=== PATIENT | female | born 1990 | race African-American/Black ===

== ENCOUNTER 2017-07-08 08:49 | Emergency (ER) | payer MEDICAID ==
[~2017-07-08] VITALS: Ht 149.9 cm; Wt 59.8 kg
[~2017-07-08 08:49] MED LIST: HYDR-3992; HYDR25SU7
[2017-07-08 09:25] VITALS: BP 109/76
== END 2017-07-08 11:56 | disposition left against medical advice (07) ==
LOC: ER 09:27
DX: M79.606 Pain in leg, unspecified (principal); Z53.21 Procedure and treatment not carried out due to patient leaving prior to being seen by health care provider

== ENCOUNTER 2020-02-23 23:52 | Observation (INO) | payer OTHER ==
[~2020-02-23] VITALS: Ht 149.9 cm; Wt 84.8 kg
[~2020-02-23 23:52] MED LIST changes: +IBUP-2028 PO
[2020-02-24 01:17] LABS: BASOPHILS % 0.4 % (0.0-2.0); CLARITY URINE TURBID (CLEAR); COLOR URINE YELLOW (YELLOW); EOSINOPHILS % 2.4 % (0.0-5.0); HEMATOCRIT. 29.1 % (36.0-48.0); HEMOGLOBIN. 10.1 g/dL (12.0-16.0); KETONES URINE TRACE (NEGATIVE); LEUKOCYTE ESTERASE URINE 2+ (NEGATIVE); LYMPHOCYTES % 22.8 % (20.0-50.0); MEAN CORPUSCULAR HEMOGLOBIN 30.8 pg (28.0-32.0); MEAN CORPUSCULAR VOLUME 88.9 fL (81.0-99.0); MEAN PLATELET VOLUME 8.4 fl (7.4-10.4); MONOCYTES % 12.1 % (2.0-8.0); NEUTROPHILS % 62.3 % (40.0-76.0); NITRITE URINE NEGATIVE (NEGATIVE); OCCULT BLOOD URINE NEGATIVE (NEGATIVE); PH URINE 6.5 (4.5-8.0); PLATELET 273 x1000/uL (130-400); PROTEIN URINE 1+ (NEGATIVE); RED BLOOD CELL COUNT 3.28 mill/uL (4.2-5.4); SPECIFIC GRAVITY URINE 1.027 (1.005-1.030)
[2020-02-24] MEDS ORDERED: ACETAMINOPHEN 325MG TABLET PO SCH (01:30)
[2020-02-24] MEDS: CEFTRIAXONE SODIUM 1 G/VIAL IM SCH ×2 (02:04→02:16)
== END 2020-02-24 02:37 | disposition home or self-care (01) ==
LOC: 8 EST LDRP 23:52
PROVIDERS: ADMIT Obstetrics & Gynecology; ATTEND Obstetrics & Gynecology
DX: O26.893 Other specified pregnancy related conditions, third trimester (principal); M54.5 Low back pain; Z3A.29 29 weeks gestation of pregnancy
CPT/HCPCS: 36415; 59025; 81003; 85025; 87086; 96372; G0378; J0696; 99281

== ENCOUNTER 2020-03-25 15:52 | Observation (INO) | payer OTHER ==
[~2020-03-25] VITALS: Ht 149.9 cm; Wt 85.3 kg
[2020-03-25] MEDS ORDERED: LACTATED RINGERS 1,000 ML IV SCH (17:00)
[2020-03-25 17:32] LABS: CLARITY URINE CLOUDY (CLEAR); COLOR URINE YELLOW (YELLOW); KETONES URINE 1+ (NEGATIVE); LEUKOCYTE ESTERASE URINE 2+ (NEGATIVE); NITRITE URINE NEGATIVE (NEGATIVE); OCCULT BLOOD URINE NEGATIVE (NEGATIVE); PH URINE 6.5 (4.5-8.0); PROTEIN URINE 1+ (NEGATIVE)
[2020-03-25] MEDS ORDERED: PNV1TABL50 MT (18:44)
== END 2020-03-25 19:15 | disposition home or self-care (01) ==
LOC: 8 EST LDRP 15:52
PROVIDERS: ADMIT Obstetrics & Gynecology; ATTEND Obstetrics & Gynecology
DX: O99.891 Other specified diseases and conditions complicating pregnancy (principal); M54.5 Low back pain; Z3A.33 33 weeks gestation of pregnancy
CPT/HCPCS: 59025; 76805; 76818; 81003; G0378; 99281

== ENCOUNTER 2020-04-08 13:39 | Observation (INO) | payer OTHER ==
[~2020-04-08] VITALS: Ht 149.9 cm; Wt 83.5 kg
[~2020-04-08 13:39] MED LIST changes: -HYDR-3992; -HYDR25SU7; -IBUP-2028 PO; +PNV1TABL50 MT
[2020-04-08] MEDS ORDERED: TERBUTALINE SULFATE 1MG/ML VIAL SUBCUT PRN (16:15)
[2020-04-08] MEDS ORDERED: LACTATED RINGERS 1,000 ML IV SCH ×2 (16:30)
[2020-04-08] MEDS ORDERED: TERBUTALINE SULFATE 2.5MG TABLET PO SCH (20:00)
== END 2020-04-08 16:33 | disposition home or self-care (01) ==
LOC: 8 EST LDRP 13:39
PROVIDERS: ADMIT Obstetrics & Gynecology; ATTEND Obstetrics & Gynecology
DX: O62.9 Abnormality of forces of labor, unspecified (principal); Z3A.35 35 weeks gestation of pregnancy
CPT/HCPCS: 59025; G0378; 99281

== ENCOUNTER 2022-02-04 18:56 | Emergency (ER) | payer MEDICAID, OTHER ==
[~2022-02-04] VITALS: Ht 172.7 cm; Wt 89.0 kg
[2022-02-04 19:07] VITALS: BP 111/72
[2022-02-04] MEDS ORDERED: TAM75 MT (23:18)
[2022-02-04] MEDS ORDERED: IBUP-2028 MT (23:18)
== END 2022-02-04 21:20 | disposition left against medical advice (07) ==
LOC: ER 18:56
DX: Z53.21 Procedure and treatment not carried out due to patient leaving prior to being seen by health care provider (principal)

== ENCOUNTER 2022-02-04 21:45 | Emergency (ER) | payer OTHER ==
[~2022-02-04] VITALS: Ht 149.9 cm; Wt 76.2 kg
[2022-02-04 22:13] VITALS: BP 109/80
[2022-02-04] MEDS ORDERED: IBUPROFEN 400MG TABLET PO ONE (23:00)
[2022-02-04] MEDS ORDERED: TAM75 MT (23:18)
[2022-02-04] MEDS ORDERED: IBUP-2028 MT (23:18)
== END 2022-02-04 23:50 | disposition home or self-care (01) ==
LOC: ER 22:03
DX: R50.9 Fever, unspecified (principal); R05.9 Cough, unspecified; E78.00 Pure hypercholesterolemia, unspecified; Z20.828 Contact with and (suspected) exposure to other viral communicable diseases
CPT/HCPCS: 99283

== ENCOUNTER 2022-08-09 03:13 | Emergency (ER) | payer OTHER ==
[~2022-08-09] VITALS: Ht 162.6 cm; Wt 68.0 kg
[~2022-08-09 03:13] MED LIST changes: +IBUP-2028 MT; +TAM75 MT
[2022-08-09 03:42] VITALS: BP 142/86
[2022-08-09] MEDS ORDERED: IBUPROFEN 600MG TABLET PO STA (03:42)
[2022-08-09 06:55] LABS: CLARITY URINE CLEAR (CLEAR); COLOR URINE YELLOW (YELLOW); KETONES URINE NEGATIVE (NEGATIVE); LEUKOCYTE ESTERASE URINE TRACE (NEGATIVE); NITRITE URINE NEGATIVE (NEGATIVE); OCCULT BLOOD URINE TRACE (NEGATIVE); PROTEIN URINE 1+ (NEGATIVE); SPECIFIC GRAVITY URINE 1.016 (1.005-1.030); UROBILINOGEN URINE 0.2 E.U./dL (0.2-1.0)
[2022-08-09] MEDS ORDERED: IBUP-2029 MT (07:23)
[2022-08-09] MEDS ORDERED: ACETAMINOPHEN 325MG TABLET PO ONE (11:15)
== END 2022-08-09 13:15 ==
LOC: ER 03:13
DX: S30.0XXA Contusion of lower back and pelvis, initial encounter (principal); E78.00 Pure hypercholesterolemia, unspecified; Y04.2XXA Assault by strike against or bumped into by another person, initial encounter; Y93.89 Activity, other specified; Y92.89 Other specified places as the place of occurrence of the external cause; Y99.8 Other external cause status
CPT/HCPCS: 72170; 81003; 81025; 99284